=== PATIENT | female | born 1950 | race Caucasian/White ===

== ENCOUNTER 2017-11-14 14:05 | Outpatient (CLI) | payer MEDICARE, OTHER | END 2017-11-14 14:06 | disposition home or self-care (01) | LOC: BICMAMMO 14:05 | PROVIDERS: ATTEND Obstetrics & Gynecology | DX: Z12.31 Encounter for screening mammogram for malignant neoplasm of breast (principal); M85.80 Other specified disorders of bone density and structure, unspecified site; Z80.3 Family history of malignant neoplasm of breast | CPT/HCPCS: 77063; 77067; 77080 ==

== ENCOUNTER 2017-12-18 17:56 | Emergency (ER) | payer MEDICARE, OTHER | END 2017-12-18 20:35 | disposition home or self-care (01) | LOC: ERS 17:56 | DX: E11.649 Type 2 diabetes mellitus with hypoglycemia without coma (principal); Z79.4 Long term (current) use of insulin; Z79.899 Other long term (current) drug therapy; I10 Essential (primary) hypertension | CPT/HCPCS: 36416; 93005 ==

== ENCOUNTER 2018-11-17 09:54 | Outpatient (CLI) | payer MEDICARE, OTHER ==
--- NOTE | 2018-11-17 11:17 | MMO ---
Bilateral MAMMO Bilat Screen [facility]. CLINICAL HISTORY: Patient is 68 years old and is seen for screening. The patient has the following family history of breast cancer: maternal aunt. The patient has no personal history of cancer. VIEWS: The views performed were: bilateral craniocaudal with tomosynthesis and bilateral mediolateral oblique with tomosynthesis. FILMS COMPARED: The present examination has been compared to prior imaging studies performed at [facility] on 11/01/2014, 11/06/2015, 11/12/2016 and 11/14/2017, and at [facility] on 09/28/2013. MAMMOGRAM FINDINGS: There are scattered fibroglandular densities. There are no suspicious masses, suspicious calcifications, or new areas of architectural distortion. IMPRESSION: THERE IS NO MAMMOGRAPHIC EVIDENCE OF MALIGNANCY. A ROUTINE FOLLOW-UP MAMMOGRAM IN 1 YEAR IS RECOMMENDED. THE RESULTS OF THIS EXAM WERE SENT TO THE PATIENT. ACR BI-RADS Category 1 - Negative MAMMOGRAPHY NOTE: 1. A negative mammogram report should not delay a biopsy if a dominant of clinically suspicious mass is present. 2. Approximately 10% to 15% of breast cancers are not detected by mammography. 3. Adenosis and dense breasts may obscure an underlying neoplasm.
== END 2018-11-17 09:55 | disposition home or self-care (01) ==
LOC: BICMAMMO 09:54
PROVIDERS: ATTEND Obstetrics & Gynecology
DX: Z12.31 Encounter for screening mammogram for malignant neoplasm of breast (principal)
CPT/HCPCS: 77063; 77067

== ENCOUNTER 2019-12-07 13:07 | Outpatient (CLI) | payer MEDICARE, OTHER ==
--- NOTE | 2019-12-07 14:05 | MMO ---
Bilateral MAMMO Bilat Screen [facility]. CLINICAL HISTORY: Patient is 69 years old and is seen for screening. The patient has the following family history of breast cancer: maternal aunt. The patient has no personal history of cancer. VIEWS: The views performed were: bilateral craniocaudal with tomosynthesis and bilateral mediolateral oblique with tomosynthesis. FILMS COMPARED: The present examination has been compared to prior imaging studies performed at [facility] on 11/06/2015, 11/12/2016, 11/14/2017 and 11/17/2018. This study has been interpreted with the assistance of computer-aided detection. MAMMOGRAM FINDINGS: There are scattered fibroglandular densities. There are no suspicious masses, suspicious calcifications, or new areas of architectural distortion. IMPRESSION: THERE IS NO MAMMOGRAPHIC EVIDENCE OF MALIGNANCY. A ROUTINE FOLLOW-UP MAMMOGRAM IN 1 YEAR IS RECOMMENDED. THE RESULTS OF THIS EXAM WERE SENT TO THE PATIENT. ACR BI-RADS Category 1 - Negative MAMMOGRAPHY NOTE: 1. A negative mammogram report should not delay a biopsy if a dominant of clinically suspicious mass is present. 2. Approximately 10% to 15% of breast cancers are not detected by mammography. 3. Adenosis and dense breasts may obscure an underlying neoplasm. Reported by: MATT POPE MD Electonically Signed: [id number]
== END 2019-12-07 13:08 | disposition home or self-care (01) ==
LOC: BICMAMMO 13:07
PROVIDERS: ATTEND Obstetrics & Gynecology
DX: Z12.31 Encounter for screening mammogram for malignant neoplasm of breast (principal); Z80.3 Family history of malignant neoplasm of breast
CPT/HCPCS: 77063; 77067

== ENCOUNTER 2020-08-03 07:40 | Outpatient (CLI) | payer MEDICARE, OTHER ==
[2020-08-03 12:23] LABS: #Eosinphils 0.1 10x3/uL (0.0-0.5); #Monocytes 0.5 10x3/uL (0.0-1.1); #Neutrophils 4.6 10x3/uL (1.5-8.4); %Basophils 0.3 % (0.0-2.0); %Eosinophils 1.2 % (0.0-6.0); %Lymphocytes 32.6 % (18.0-47.0); %Monocytes 5.8 % (0.0-10.0); %Neutrophils 59.8 % (40.0-75.0); Hemoglobin 12.8 g/dL (12.0-16.0); Mean Corpuscular HGB CONC 31.9 G/DL (32.0-36.0); Mean Corpuscular Hemoglobin 26.6 PG (27.0-33.0); Mean Corpuscular Volume 83.4 fl (80.0-100.0); Mean Platelet Volume 10.3 fl (7.4-10.4); Platelet Count 302 10x3/uL (130-400); RBC Distribution Width 13.5 % (11.5-14.5); Red Blood Cell (RBC) Count 4.81 10x6/uL (3.90-5.20); White Blood Cell (WBC) Count 7.7 10x3/uL (4.5-11.0)
[2020-08-03 12:28] LABS: Anion Gap 13 mmol/L (10-20); BUN (Urea Nitrogen) 22 mg/dL (9.8-20.1); Calc. Creatinine Clearance 0 mL/min (70-130); Calcium 9.2 mg/dL (7.8-10.44); Carbon Dioxide 24 mmol/L (23-31); Chloride 103 mmol/L (98-107); Glucose 104 mg/dL (80-115); Potassium 4.7 mmol/L (3.5-5.1); Sodium 135 mmol/L (136-145)
[2020-08-03 18:28] LABS: SARS-CoV-2 MS2 Positive; SARS-CoV-2 N Gene Negative; SARS-CoV-2 S Gene Negative; SARS-CoV-2 by NAA Not Detected (NotDetected); SARS-CoV-2 orf1ab Negative
== END 2020-08-03 07:41 | disposition home or self-care (01) ==
LOC: LABBT 07:40
PROVIDERS: ATTEND Thoracic Surgery (Cardiothoracic Vascular Surgery)
DX: Z01.812 Encounter for preprocedural laboratory examination (principal); I25.10 Atherosclerotic heart disease of native coronary artery without angina pectoris; Z20.822 Contact with and (suspected) exposure to COVID-19
CPT/HCPCS: 80048; 85025; U0003; U0005; 87635

== ENCOUNTER 2020-08-17 07:59 | Outpatient (CLI) | payer MEDICARE, OTHER ==
[2020-08-18 02:30] LABS: SARS-CoV-2 PCR by NAA Not Detected (NotDetected)
== END 2020-08-17 08:00 | disposition home or self-care (01) ==
LOC: LABBT 07:59
PROVIDERS: ATTEND Thoracic Surgery (Cardiothoracic Vascular Surgery)
DX: Z01.812 Encounter for preprocedural laboratory examination (principal); I25.10 Atherosclerotic heart disease of native coronary artery without angina pectoris; Z20.822 Contact with and (suspected) exposure to COVID-19
CPT/HCPCS: 86850; 86900; 86901; 86920; U0003; U0005; 87635

== ENCOUNTER 2020-08-17 14:45 | Inpatient (IN) | payer MEDICARE, OTHER ==
[2020-08-22] MEDS ORDERED: Albumin 5% 500 ML ONE (06:30)
[2020-08-22] MEDS ORDERED: Midazolam HCl 5 mg/5 ml Vial ONE (06:31)
[2020-08-22] MEDS ORDERED: Fentanyl 100 MCG/2 ML VIAL ONE ×2 (06:31→11:49)
[2020-08-22] MEDS ORDERED: Vecuronium 10 MG VIAL ONE ×3 (06:31→10:20)
[2020-08-22] MEDS ORDERED: Dexmedetomidine 200 MCG/2 ML VIAL ONE (06:31)
[2020-08-22] MEDS ORDERED: Midazolam HCl 2 mg/2 ml Vial ONE (06:31)
[2020-08-22] MEDS ORDERED: Heparin 10,000 UNITS/1 ML VIAL 30,000 UNITS in Sodium Chloride 0.9% 1,000 ML FS SCH (07:15)
[2020-08-22] MEDS ORDERED: Insulin Regular 300 UNITS/3 ML VIAL ONE (07:35)
[2020-08-22] MEDS ORDERED: PHENYLEPHRINE-NS 100 MCG/ML 10 ML SYRINGE ONE ×2 (08:31→10:20)
[2020-08-22] MEDS ORDERED: Mannitol 12.5 GM/50 ML ONE (10:20)
[2020-08-22] MEDS ORDERED: Magnesium Sulfate 1 GM/2 ML VIAL ONE (10:20)
[2020-08-22] MEDS ORDERED: Cardioplegic Soln 1,000 ML BAG ONE (10:20)
[2020-08-22] MEDS ORDERED: Ketorolac Tromethamine 30 MG/ML VIAL ONE (10:20)
[2020-08-22] MEDS ORDERED: Heparin 5,000 UNITS/ML VIAL ONE (10:20)
[2020-08-22] MEDS ORDERED: Dexamethasone 20 MG/5 ML VIAL ONE (10:20)
[2020-08-22] MEDS ORDERED: Lidocaine 2% PF 100 mg/5 ml Syringe ONE (10:20)
[2020-08-22] MEDS ORDERED: Papaverine 60 MG/2 ML VIAL ONE (10:20)
[2020-08-22] MEDS ORDERED: Nitroglycerin 50 MG/250 ML BOT ONE (10:20)
[2020-08-22] MEDS ORDERED: Heparin 30,000 units/30 ml VIAL ONE (10:20)
[2020-08-22] MEDS ORDERED: Potassium Chloride 60 MEQ/30 ML VIAL ONE (10:20)
[2020-08-22] MEDS ORDERED: Glycopyrrolate 0.2 MG/ML 5 ML SYRINGE ONE (10:20)
[2020-08-22] MEDS ORDERED: Thrombin 5000 UNITS/5 ML VIAL ONE (10:20)
[2020-08-22] MEDS ORDERED: Protamine Sulfate 250 MG/25 ML VIAL ONE (10:20)
[2020-08-22] MEDS ORDERED: Ondansetron PF 4 MG/2 ML Vial ONE (10:20)
[2020-08-22] MEDS ORDERED: Aminocaproic Acid 5 GM/20 ML VIAL ONE (10:20)
[2020-08-22] MEDS ORDERED: Lidocaine 1% PF 5 ML VIAL ONE (10:20)
[2020-08-22] MEDS ORDERED: Calcium Chloride 1 GM/10 ML Abboject SYRINGE ONE (10:20)
[2020-08-22] MEDS ORDERED: Sodium Bicarb 50 MEQ/50 ML Abboject 8.4% SYRINGE ONE (10:20)
[2020-08-22] MEDS ORDERED: Mag-Al 1200 mg/1200 mg/30 ML UDCUP PO PRN (11:33)
[2020-08-22] MEDS ORDERED: Bisacodyl 10 MG SUPP PR PRN (11:33)
[2020-08-22] MEDS ORDERED: Nitroglycerin 50 MG/250 ML BOT 250 ML IVPB PRN (11:33)
[2020-08-22] MEDS ORDERED: Post-Op Insulin Drip Protocol IVPB ONE (11:33)
[2020-08-22] MEDS ORDERED: Ondansetron PF 4 MG/2 ML Vial IVP PRN (11:33)
[2020-08-22] MEDS ORDERED: Morphine 2 MG/ML VIAL SLOW IVP PRN (11:33)
[2020-08-22] MEDS ORDERED: hydrALAZINE 20 MG/ML VIAL SLOW IVP PRN (11:33)
[2020-08-22] MEDS ORDERED: Norepinephrine 8 MG/0.9% NS 250 ML IVPB PRN (11:33)
[2020-08-22] MEDS ORDERED: Hetastarch 6% 500 ML 500 ML IVPB PRN (11:33)
[2020-08-22] MEDS ORDERED: Fentanyl 100 MCG/2 ML VIAL SLOW IVP PRN ×2 (11:33)
[2020-08-22] MEDS ORDERED: Guaifenesin DM 100-10/5 ML UDCUP PO PRN (11:33)
[2020-08-22] MEDS ORDERED: Magnesium 2 GM/50 ML 2 GM in Premix Bag 1 BAG IVPB SCH (11:33)
[2020-08-22] MEDS ORDERED: DOPamine 400 MG/D5W 250 ML 250 ML IVPB PRN (11:33)
[2020-08-22] MEDS ORDERED: Acetaminophen 325 MG TAB PO PRN (11:33)
[2020-08-22] MEDS ORDERED: Bisacodyl 5 MG TAB PO PRN (11:33)
[2020-08-22] MEDS ORDERED: niCARdipine 25 MG in Sodium Chloride 0.9% 250 ML 240 ML IVPB PRN (11:33)
[2020-08-22] MEDS ORDERED: Magnesium 5 GM/10 ML Abboject SYRINGE ONE (11:43)
[2020-08-22 11:54] LABS: #Eosinphils 0.1 thou/uL (0.0-0.7); #Lymphocytes 1.1 thou/uL (1.20-3.40); #Monocytes 0.2 thou/uL (0.11-0.59); #Neutrophils 11.7 thou/uL (1.40-6.50); %Basophils 0.2 % (0.0-1.0); %Eosinophils 0.6 % (0.0-10.0); %Lymphocytes 8.7 % (21.0-51.0); %Monocytes 1.2 % (0.0-10.0); %Neutrophils 89.4 % (42.0-75.0); Hemoglobin 10.7 g/dL (12.0-16.0); Mean Corpuscular Hemoglobin 28.4 pg (27.0-31.0); Mean Corpuscular Volume 85.8 fL (78.0-98.0); Mean Platelet Volume 8.7 fL (7.4-10.4); Platelet Count 168 thou/uL (130-400); RBC Distribution Width 12.3 % (11.5-14.5); Red Blood Cell (RBC) Count 3.77 mill/uL (4.20-5.40); White Blood Cell (WBC) Count 13.1 thou/uL (4.8-10.8)
[2020-08-22 12:14] LABS: INR-International Normal Ratio 1.3; PTT 35.8 sec (22.9-36.1)
[2020-08-22] MEDS ORDERED: HUMULIN R 100 UNITS in Sodium Chloride 0.9% 100 ML IVPB SCH (12:15)
[2020-08-22] MEDS ORDERED: Dextrose 50% Abboject 50 ML SYRINGE SLOW IVP PRN (12:15)
[2020-08-22] MEDS ORDERED: Insulin Regular 300 UNITS/3 ML VIAL SC PRN (12:15)
[2020-08-22] MEDS ORDERED: Dextrose 5% in Water 1,000 ML IV PRN (12:15)
[2020-08-22 12:19] LABS: Anion Gap 10 mmol/L (10-20); BUN (Urea Nitrogen) 19 mg/dL (9.8-20.1); Calc. Creatinine Clearance 74 mL/min (70-130); Calcium 7.8 mg/dL (7.8-10.44); Carbon Dioxide 24 mmol/L (23-31); Chloride 111 mmol/L (98-107); Glucose 113 mg/dL (80-115); Sodium 141 mmol/L (136-145)
[2020-08-22] MEDS ORDERED: Lactated Ringer's 1,000 ML IV SCH (12:30)
[2020-08-22] MEDS: Potassium Chloride 20 MEQ/100 ML PREMIX BAG IVPB PRN ×2 (12:45→18:34)
[2020-08-22] MEDS: CEFAZOLIN 2 GM in Premix Bag 1 BAG IVPB SCH ×2 (14:53→22:41)
[2020-08-22 15:18] LABS: Actual Bicarbonate (HCO3a) 20.8 mEq/L (22-28); Analyzer IN Cardio OR; Base Excess (BEa) -2.6 mEq/L (-2.0 to +3.0); CO2 Tension 31.8 mmHg (35.0-45.0); Calcium, Ionized (arterial) 1.12 mmol/L (1.12-1.30); Carboxyhemoglobin (COHb) 0.2 gm% (0.0-3.0); Hemoglobin (Hb) 11.5 g/dL (12.0-16.0); O2 Tension (PaO2), arterial 477.1 mmHg (> 80.0); Potassium - ABG Lab 3.79 mmol/L (3.70-5.30); pH, Arterial 7.43 (7.35-7.45)
[2020-08-22 15:19] LABS: Actual Bicarbonate (HCO3a) 22.7 mEq/L (22-28); Analyzer IN Cardio OR; Base Excess (BEa) -1.5 mEq/L (-2.0 to +3.0); CO2 Tension 35.4 mmHg (35.0-45.0); Calcium, Ionized (arterial) 0.95 mmol/L (1.12-1.30); Carboxyhemoglobin (COHb) 0.6 gm% (0.0-3.0); Hemoglobin (Hb) 7.4 g/dL (12.0-16.0); O2 Tension (PaO2), arterial 431.5 mmHg (> 80.0); Potassium - ABG Lab 3.76 mmol/L (3.70-5.30); pH, Arterial 7.43 (7.35-7.45)
[2020-08-22 15:19] LABS: Actual Bicarbonate (HCO3a) 19.5 mEq/L (22-28); Analyzer IN Cardio OR; Base Excess (BEa) -4.6 mEq/L (-2.0 to +3.0); CO2 Tension 32.6 mmHg (35.0-45.0); Calcium, Ionized (arterial) 1.14 mmol/L (1.12-1.30); Carboxyhemoglobin (COHb) 0.1 gm% (0.0-3.0); Hemoglobin (Hb) 11.6 g/dL (12.0-16.0); O2 Tension (PaO2), arterial 444.1 mmHg (> 80.0); Potassium - ABG Lab 3.27 mmol/L (3.70-5.30); pH, Arterial 7.39 (7.35-7.45)
[2020-08-22 15:19] LABS: Actual Bicarbonate (HCO3a) 24.6 mEq/L (22-28); Analyzer IN Cardio OR; Base Excess (BEa) 1.7 mEq/L (-2.0 to +3.0); CO2 Tension 31.2 mmHg (35.0-45.0); Calcium, Ionized (arterial) 0.76 mmol/L (1.12-1.30); Carboxyhemoglobin (COHb) 0.6 gm% (0.0-3.0); Hemoglobin (Hb) 7.6 g/dL (12.0-16.0); O2 Tension (PaO2), arterial 384.4 mmHg (> 80.0); Potassium - ABG Lab 3.51 mmol/L (3.70-5.30); pH, Arterial 7.51 (7.35-7.45)
[2020-08-22 15:20] LABS: Puncture Site Arterial Line
[2020-08-22 15:20] LABS: Actual Bicarbonate (HCO3a) 20.8 mEq/L (22-28); Analyzer IN Cardio OR; Base Excess (BEa) -2.5 mEq/L (-2.0 to +3.0); CO2 Tension 30.8 mmHg (35.0-45.0); Calcium, Ionized (arterial) 1.07 mmol/L (1.12-1.30); Carboxyhemoglobin (COHb) 0.3 gm% (0.0-3.0); Hemoglobin (Hb) 10.1 g/dL (12.0-16.0); O2 Tension (PaO2), arterial 494.8 mmHg (> 80.0); Potassium - ABG Lab 3.52 mmol/L (3.70-5.30); pH, Arterial 7.45 (7.35-7.45)
[2020-08-22 15:20] LABS: Puncture Site Arterial Line
[2020-08-22 15:21] LABS: Puncture Site Arterial Line
[2020-08-22 15:21] LABS: Puncture Site Arterial Line
[2020-08-22 15:22] LABS: Puncture Site Arterial Line
[2020-08-22 17:00] LABS: Hemoglobin 9.4 g/dL (12.0-16.0)
[2020-08-22 17:10] LABS: Potassium 3.4 mmol/L (3.5-5.1)
[2020-08-22] MEDS: Atorvastatin Calcium 40 MG TAB PO SCH (20:18)
[2020-08-22] MEDS: HYDROcodone/Acetaminophen 5/325 mg Tablet PO PRN (20:18)
[2020-08-22] MEDS: Famotidine/PF 20 mg/2ml Vial SLOW IVP SCH (20:19)
[2020-08-22] MEDS ORDERED: Atorvastatin Calcium 10 MG TAB PO SCH (21:00)
[2020-08-23] MEDS: HYDROcodone/Acetaminophen 5/325 mg Tablet PO PRN ×2 (00:11→21:35)
[2020-08-23] MEDS: Insulin Regular 300 UNITS/3 ML VIAL SC PRN ×5 (00:18→20:37)
[2020-08-23 07:23] LABS: Anion Gap 16 mmol/L (10-20); BUN (Urea Nitrogen) 27 mg/dL (9.8-20.1); Calc. Creatinine Clearance 57 mL/min (70-130); Calcium 7.5 mg/dL (7.8-10.44); Carbon Dioxide 16 mmol/L (23-31); Chloride 107 mmol/L (98-107); Glucose 193 mg/dL (80-115); Potassium 3.9 mmol/L (3.5-5.1); Sodium 135 mmol/L (136-145)
[2020-08-23 07:23] LABS: #Lymphocytes 1.4 thou/uL (1.20-3.40); #Monocytes 0.7 thou/uL (0.11-0.59); #Neutrophils 13.1 thou/uL (1.40-6.50); %Basophils 0.2 % (0.0-1.0); %Lymphocytes 9.2 % (21.0-51.0); %Monocytes 4.4 % (0.0-10.0); %Neutrophils 86.3 % (42.0-75.0); Hemoglobin 8.5 g/dL (12.0-16.0); Mean Corpuscular HGB CONC 31.8 g/dL (32.0-36.0); Mean Corpuscular Hemoglobin 27.6 pg (27.0-31.0); Mean Corpuscular Volume 86.9 fL (78.0-98.0); Mean Platelet Volume 8.3 fL (7.4-10.4); Platelet Count 173 thou/uL (130-400); RBC Distribution Width 12.6 % (11.5-14.5); Red Blood Cell (RBC) Count 3.08 mill/uL (4.20-5.40); White Blood Cell (WBC) Count 15.2 thou/uL (4.8-10.8)
[2020-08-23] MEDS: CEFAZOLIN 2 GM in Premix Bag 1 BAG IVPB SCH (07:24)
[2020-08-23] MEDS: Aspirin Chewable 81 MG TAB PO SCH (08:57)
[2020-08-23] MEDS: Famotidine/PF 20 mg/2ml Vial SLOW IVP SCH (08:57)
[2020-08-23] MEDS ORDERED: FLU VACC QS2020-21(65YR UP)/PF 240 MCG/0.7 ML SYRINGE IM ONE (09:00)
[2020-08-23 10:44] VITALS: BMI 24.7
[2020-08-23] MEDS ORDERED: Nitroglycerin 0.4 MG TAB (25 Tab Bottle) SL PRN (13:57)
[2020-08-23] MEDS ORDERED: Dextrose 5% in Water 1,000 ML IV PRN (14:15)
[2020-08-23] MEDS ORDERED: Dextrose 50% Abboject 50 ML SYRINGE SLOW IVP PRN (14:15)
[2020-08-23] MEDS: Famotidine 20 MG TAB PO SCH (20:36)
[2020-08-23] MEDS: Atorvastatin Calcium 40 MG TAB PO SCH (20:36)
[2020-08-24] MEDS: Insulin Regular 300 UNITS/3 ML VIAL SC PRN (06:08)
[2020-08-24] MEDS: Aspirin Chewable 81 MG TAB PO SCH (08:09)
[2020-08-24] MEDS: Famotidine 20 MG TAB PO SCH ×2 (08:09→21:03)
[2020-08-24] MEDS: Potassium Chloride 10 MEQ TAB PO SCH (08:10)
[2020-08-24] MEDS: Furosemide 40 MG TAB PO SCH (08:11)
[2020-08-24] MEDS ORDERED: Losartan 25 MG TAB PO SCH ×2 (09:00→17:15)
[2020-08-24] MEDS ORDERED: DORZOLAMIDE OP SCH (21:00)
[2020-08-24] MEDS ORDERED: TIMOLOL OP SCH (21:00)
[2020-08-24] MEDS ORDERED: NETARSUDIL MESYLATE OP SCH (21:00)
[2020-08-24] MEDS ORDERED: [UNRECOGNIZED DRUG - OTHER] OP SCH (21:00)
[2020-08-24] MEDS: HYDROcodone/Acetaminophen 5/325 mg Tablet PO PRN (21:03)
[2020-08-24] MEDS: Atorvastatin Calcium 40 MG TAB PO SCH (21:03)
[2020-08-24] MEDS: Netarsudil Mesylate [Rhopressa] 2.5 ML Drops EA EYE SCH (21:04)
[2020-08-24] MEDS: DorzolamidE/Timolol 2%/0.5% Ophth Soln 10 ml Bottle EA EYE SCH (21:04)
[2020-08-25] MEDS: HYDROcodone/Acetaminophen 5/325 mg Tablet PO PRN ×2 (06:36→21:49)
[2020-08-25] MEDS: Aspirin Chewable 81 MG TAB PO SCH (07:00)
[2020-08-25] MEDS: Potassium Chloride 10 MEQ TAB PO SCH (07:00)
[2020-08-25] MEDS: Losartan 25 MG TAB PO SCH (07:00)
[2020-08-25] MEDS: Furosemide 40 MG TAB PO SCH (07:01)
[2020-08-25] MEDS: Carvedilol 6.25 MG TAB PO SCH ×2 (07:01→16:53)
[2020-08-25] MEDS: DorzolamidE/Timolol 2%/0.5% Ophth Soln 10 ml Bottle EA EYE SCH ×2 (07:01→21:44)
[2020-08-25] MEDS: Famotidine 20 MG TAB PO SCH ×2 (07:01→21:42)
[2020-08-25] MEDS: Atorvastatin Calcium 40 MG TAB PO SCH (21:42)
[2020-08-25] MEDS: Netarsudil Mesylate [Rhopressa] 2.5 ML Drops EA EYE SCH (21:45)
[2020-08-26] MEDS: Famotidine 20 MG TAB PO SCH (09:39)
[2020-08-26] MEDS: Carvedilol 6.25 MG TAB PO SCH (09:39)
[2020-08-26] MEDS: Potassium Chloride 10 MEQ TAB PO SCH (09:39)
[2020-08-26] MEDS: Aspirin Chewable 81 MG TAB PO SCH (09:39)
[2020-08-26] MEDS: Losartan 25 MG TAB PO SCH (09:40)
[2020-08-26] MEDS: Furosemide 40 MG TAB PO SCH (09:40)
[2020-08-26] MEDS: DorzolamidE/Timolol 2%/0.5% Ophth Soln 10 ml Bottle EA EYE SCH (09:44)
[2020-08-26] MEDS ORDERED: traMADol HCl 50 MG TAB PO PRN ×2 (10:13)
[2020-08-26 11:30] VITALS: TEMP 97.6
[2020-08-26 13:09] VITALS: BP 143/64
== END 2020-08-26 14:48 | disposition home or self-care (01) | DRG 236 ==
LOC: SURG A 08-22 05:52 → IMCU/EMU 08-22 11:13 → 2NO 08-23 17:12
PROVIDERS: ADMIT Thoracic Surgery (Cardiothoracic Vascular Surgery); ATTEND Thoracic Surgery (Cardiothoracic Vascular Surgery)
PROC: 021009W Bypass Coronary Artery, One Artery from Aorta with Autologous Venous Tissue, Open Approach (ICD-10-PCS; principal; 2020-08-22)
PROC: 02100Z9 Bypass Coronary Artery, One Artery from Left Internal Mammary, Open Approach (ICD-10-PCS; 2020-08-22)
PROC: 06BQ0ZZ Excision of Left Saphenous Vein, Open Approach (ICD-10-PCS; 2020-08-22)
PROC: 5A1221Z Performance of Cardiac Output, Continuous (ICD-10-PCS; 2020-08-22)
PROC: 0W9930Z Drainage of Right Pleural Cavity with Drainage Device, Percutaneous Approach (ICD-10-PCS; 2020-08-25)
DX: I25.10 Atherosclerotic heart disease of native coronary artery without angina pectoris (principal); J95.811 Postprocedural pneumothorax; E10.9 Type 1 diabetes mellitus without complications; I10 Essential (primary) hypertension; E78.2 Mixed hyperlipidemia; E78.00 Pure hypercholesterolemia, unspecified; Y83.8 Other surgical procedures as the cause of abnormal reaction of the patient, or of later complication, without mention of misadventure at the time of the procedure; Z79.899 Other long term (current) drug therapy; Z79.82 Long term (current) use of aspirin; Z79.4 Long term (current) use of insulin; Z88.1 Allergy status to other antibiotic agents; Z88.2 Allergy status to sulfonamides; Z90.49 Acquired absence of other specified parts of digestive tract; Z98.890 Other specified postprocedural states; Z82.3 Family history of stroke; Z82.49 Family history of ischemic heart disease and other diseases of the circulatory system
CPT/HCPCS: 36416; 36430; 71045; 80048; 82805; 84132; 85014; 85018; 85025; 85610; 85730; 86850; 86900; 86901; 93005; 93010; 93798; J0690; J1100; J1265; J1642; J1644; J1815; J1885; J2001; J2150; J2250; J2405; J2440; J2720; J3010; J3370; J3475; J3480; J3490; P9045; S0017; S0028

== ENCOUNTER 2020-10-19 10:34 | Outpatient (CLI) | payer MEDICARE, OTHER ==
[2020-10-19 18:01] LABS: SARS-CoV-2 PCR by NAA Not Detected (NotDetected)
== END 2020-10-19 10:35 | disposition home or self-care (01) ==
LOC: LABBT 10:34
PROVIDERS: ATTEND Ophthalmology Retina Specialist
DX: Z01.812 Encounter for preprocedural laboratory examination (principal); Z20.822 Contact with and (suspected) exposure to COVID-19; H40.9 Unspecified glaucoma
CPT/HCPCS: U0003; U0005; 87635

== ENCOUNTER 2020-10-24 12:51 | Day surgery (SDC) | payer MEDICARE, OTHER ==
[2020-10-23 12:00] VITALS: BMI 22.7
[~2020-10-24 12:51] MED LIST: EPINEPHrine 0.3 MG in Ophthalmic Irrigation Solution 500 ML IRR SCH
[2020-10-24] MEDS ORDERED: Phenylephrine 2.5% Ophth Soln 5 ML BOT ONE (13:10)
[2020-10-24] MEDS ORDERED: Cyclopentolate 1% Ophth Drops 15 ML BOT ONE (13:11)
[2020-10-24] MEDS ORDERED: Cyclopentolate 1% Opth Drop 2 ML BOT FS SCH (13:15)
[2020-10-24] MEDS ORDERED: Phenylephrine 2.5% Ophth Soln 5 ML BOT FS SCH (13:15)
[2020-10-24] MEDS ORDERED: Fentanyl 100 MCG/2 ML VIAL ONE (13:56)
[2020-10-24] MEDS ORDERED: Midazolam HCl 2 mg/2 ml Vial ONE (13:56)
[2020-10-24] MEDS ORDERED: PROPOFOL 20 ML ONE (14:01)
[2020-10-24] MEDS ORDERED: Indocyanine Green 25 MG/10 ML VIAL ONE (14:35)
[2020-10-24] MEDS ORDERED: CEFAZOLIN 1 GM VIAL ONE (14:35)
[2020-10-24] MEDS ORDERED: Bupivacaine PF 0.75% SDV 10 ML ONE (14:35)
[2020-10-24] MEDS ORDERED: Maxitrol 0.1% Opth Oint 3.5 GM TUBE ONE (14:35)
[2020-10-24] MEDS ORDERED: Lidocaine 1% PF 5 ML VIAL ONE (14:35)
[2020-10-24] MEDS ORDERED: PROPOFOL 200 MG/20 ML VIAL ONE (14:35)
[2020-10-24] MEDS ORDERED: Lidocaine 4% PF 5 ML AMP ONE (14:35)
[2020-10-24] MEDS ORDERED: Triamcinolone 40 MG/ML VIAL ONE (14:35)
== END 2020-10-24 16:42 | disposition home or self-care (01) ==
LOC: SDC 12:51
PROVIDERS: ATTEND Ophthalmology Retina Specialist
PROC: 08T43ZZ Resection of Right Vitreous, Percutaneous Approach (ICD-10-PCS; principal; 2020-10-24)
PROC: 08NE3ZZ Release Right Retina, Percutaneous Approach (ICD-10-PCS; 2020-10-24)
DX: H35.371 Puckering of macula, right eye (principal); H33.21 Serous retinal detachment, right eye; H40.9 Unspecified glaucoma; Z79.4 Long term (current) use of insulin; Z79.82 Long term (current) use of aspirin; Z79.899 Other long term (current) drug therapy; Z88.2 Allergy status to sulfonamides
CPT/HCPCS: 67041; 82962; L8612; 36416; J0171; J0690; J2250; J2704; J3010; J3301; J3490

== ENCOUNTER 2020-11-09 16:09 | Outpatient (CLI) | payer MEDICARE, OTHER ==
[2020-11-10 02:15] LABS: SARS-CoV-2 PCR by NAA Not Detected (NotDetected)
== END 2020-11-09 16:10 | disposition home or self-care (01) ==
LOC: LABBT 16:09
PROVIDERS: ATTEND Ophthalmology Retina Specialist
DX: Z01.812 Encounter for preprocedural laboratory examination (principal); H40.9 Unspecified glaucoma; Z20.822 Contact with and (suspected) exposure to COVID-19
CPT/HCPCS: U0003; U0005; 87635

== ENCOUNTER 2020-11-14 10:40 | Day surgery (SDC) | payer MEDICARE, OTHER ==
[2020-11-13 13:49] VITALS: BMI 22.7
[~2020-11-14 10:40] MED LIST changes: +Fentanyl 100 MCG/2 ML VIAL ONE; +Midazolam HCl 2 mg/2 ml Vial ONE
[2020-11-14] MEDS ORDERED: Cyclopentolate 1% Ophth Drops 15 ML BOT ONE (10:48)
[2020-11-14] MEDS ORDERED: Phenylephrine 2.5% Ophth Soln 5 ML BOT ONE (10:48)
[2020-11-14] MEDS ORDERED: PROPOFOL 200 MG/20 ML VIAL ONE (11:00)
[2020-11-14] MEDS ORDERED: Maxitrol 0.1% Opth Oint 3.5 GM TUBE ONE (14:30)
[2020-11-14] MEDS ORDERED: Lidocaine 4% PF 5 ML AMP ONE (14:30)
[2020-11-14] MEDS ORDERED: Bupivacaine PF 0.75% SDV 10 ML ONE (14:30)
== END 2020-11-14 12:58 | disposition home or self-care (01) ==
LOC: SDC 10:40
PROVIDERS: ATTEND Ophthalmology Retina Specialist
PROC: 08123J4 Bypass Right Anterior Chamber to Sclera with Synthetic Substitute, Percutaneous Approach (ICD-10-PCS; principal; 2020-11-14)
DX: H40.2213 Chronic angle-closure glaucoma, right eye, severe stage (principal); E78.5 Hyperlipidemia, unspecified; I10 Essential (primary) hypertension; E10.9 Type 1 diabetes mellitus without complications; I25.10 Atherosclerotic heart disease of native coronary artery without angina pectoris; Z79.82 Long term (current) use of aspirin; Z79.899 Other long term (current) drug therapy; Z88.2 Allergy status to sulfonamides; Z95.1 Presence of aortocoronary bypass graft
CPT/HCPCS: J0171; J2250; J2704; J3010; J3490; L8612

== ENCOUNTER 2021-05-01 09:06 | Outpatient (CLI) | payer MEDICARE, OTHER | END 2021-05-01 09:07 | disposition home or self-care (01) | LOC: BICMAMMO 09:06 | PROVIDERS: ATTEND Nurse Practitioner Family | DX: Z12.31 Encounter for screening mammogram for malignant neoplasm of breast (principal); Z13.820 Encounter for screening for osteoporosis; M81.0 Age-related osteoporosis without current pathological fracture; M85.851 Other specified disorders of bone density and structure, right thigh; M85.852 Other specified disorders of bone density and structure, left thigh; Z79.890 Hormone replacement therapy; Z80.3 Family history of malignant neoplasm of breast | CPT/HCPCS: 77063; 77067; 77080 ==

== ENCOUNTER 2021-07-09 19:58 | Emergency (ER) | payer MEDICARE, OTHER ==
[2021-07-09 20:34] LABS: Bacteria/HPF 4+ HPF (None Seen); Bilirubin Negative (Negative); Blood, Urine 1+ (Negative); Clarity Extra Turbid (Clear); Glucose, Urine (Dipstick) Normal (Negative); Ketone, Urine 10 mg/dL (Negative); Leukocyte 500 Leu/uL (Negative); Nitrite Negative (Negative); Protein, Urine (Dipstick) 100 mg/dL (Neg-Trace); RBC/HPF 0-3 HPF (0-3); Specific Gravity, Urine 1.011 (1.002-1.036); Squamous Epithelial 0-3 HPF (0-3); Urobilinogen Normal mg/dL (Less than 2); pH, Urine 5.5 (5.0-9.0)
[2021-07-09 20:36] LABS: #Lymphocytes 1.5 thou/uL (1.20-3.40); #Monocytes 0.9 thou/uL (0.11-0.59); #Neutrophils 13.5 thou/uL (1.40-6.50); %Basophils 0.1 % (0.0-1.0); %Lymphocytes 9.3 % (21.0-51.0); %Monocytes 5.9 % (0.0-10.0); %Neutrophils 84.6 % (42.0-75.0); Hemoglobin 12.2 g/dL (12.0-16.0); Mean Corpuscular HGB CONC 33.1 g/dL (32.0-36.0); Mean Corpuscular Hemoglobin 28.1 pg (27.0-31.0); Mean Corpuscular Volume 84.9 fL (78.0-98.0); Mean Platelet Volume 7.2 fL (7.4-10.4); Platelet Count 243 thou/uL (130-400); Red Blood Cell (RBC) Count 4.35 mill/uL (4.20-5.40); White Blood Cell (WBC) Count 15.9 thou/uL (4.8-10.8)
[2021-07-09 20:56] LABS: ALT (SGPT) 10 U/L (8-55); AST (SGOT) 15 U/L (5-34); Albumin 3.5 g/dL (3.4-4.8); Alkaline Phosphatase 80 U/L (40-110); Anion Gap 12 mmol/L (10-20); BUN (Urea Nitrogen) 19 mg/dL (9.8-20.1); Bilirubin, Total 0.7 mg/dL (0.2-1.2); Calc. Creatinine Clearance 0 mL/min (70-130); Calcium 8.5 mg/dL (7.8-10.44); Carbon Dioxide 20 mmol/L (23-31); Chloride 91 mmol/L (98-107); Globulin 3.1 g/dL (2.4-3.5); Glucose 209 mg/dL (80-115); Protein, Total 6.6 g/dL (5.8-8.1)
[2021-07-09 21:01] LABS: Sodium 119 mmol/L (136-145)
[2021-07-09] MEDS ORDERED: cefTRIAXone\\ROCEPHIN 1 GM VIAL ONE (21:41)
== END 2021-07-09 22:40 | disposition home or self-care (01) ==
LOC: ERS 19:58
DX: N39.0 Urinary tract infection, site not specified (principal); E87.1 Hypo-osmolality and hyponatremia; E11.9 Type 2 diabetes mellitus without complications; I10 Essential (primary) hypertension; E78.5 Hyperlipidemia, unspecified; Z79.4 Long term (current) use of insulin; Z79.899 Other long term (current) drug therapy
CPT/HCPCS: 36415; 80053; 81003; 81015; 85025; 87077; 87086; 87186; 96365; J0696

== ENCOUNTER 2022-05-03 13:04 | Outpatient (CLI) | payer MEDICARE, OTHER | END 2022-05-03 13:05 | disposition home or self-care (01) | LOC: BICMAMMO 13:04 | PROVIDERS: ATTEND Obstetrics & Gynecology | DX: Z12.31 Encounter for screening mammogram for malignant neoplasm of breast (principal); Z80.3 Family history of malignant neoplasm of breast | CPT/HCPCS: 77063; 77067 ==

== ENCOUNTER 2022-08-02 13:54 | Outpatient (CLI) | payer MEDICARE, OTHER | END 2022-08-02 13:55 | disposition home or self-care (01) | LOC: BICULT 13:54 | PROVIDERS: ATTEND Internal Medicine | DX: R79.89 Other specified abnormal findings of blood chemistry (principal); K76.89 Other specified diseases of liver; Z90.49 Acquired absence of other specified parts of digestive tract | CPT/HCPCS: 76700 ==

== ENCOUNTER 2023-09-22 16:08 | Outpatient (CLI) | payer MEDICARE, OTHER | END 2023-09-22 16:09 | disposition home or self-care (01) | LOC: BICRAD 16:08 | PROVIDERS: ATTEND Internal Medicine | DX: M54.50 Low back pain, unspecified (principal); R10.9 Unspecified abdominal pain; M51.36 Other intervertebral disc degeneration, lumbar region; M47.816 Spondylosis without myelopathy or radiculopathy, lumbar region; N39.0 Urinary tract infection, site not specified | CPT/HCPCS: 72100; 74018; 81001; 87086 ==